=== PATIENT | male | born 1960 | race Caucasian/White ===

== ENCOUNTER 2016-04-29 22:59 | Emergency (ER) | payer SELFPAY ==
--- NOTE | 2016-05-01 00:14 | ER ---
ADMIT: 04/29/2016 RM/LOC: ER [facility] MR#: [id number] [facility] [address] [place] [id number] CHERRI ALMODOVAR [address] [place] [address] Emergency Room Report SEX: M AGE: 56 : 1960 DATE: 04/29/2016 TIME: 2259 hours. Please refer to my T-sheet for complete H and P. HISTORY OF PRESENT ILLNESS: Briefly, the patient is a 56-year-old who was actually picked up by the officers going to halfway. He had been drinking alcohol and then he complained he had chest pain after he was told some bad news about his dog that was going [place] the [place] and some other things. They brought him in for evaluation. He was cooperative, but says it was hurting. He says he is really not having too much pain now. He said he felt like his heart was racing. PHYSICAL EXAMINATION: VITAL SIGNS: Here, his blood pressure is 129/86, pulse 91, respirations 12, temp 98, saturating 96%. GENERAL: He is no acute distress. HEENT: Grossly normal. LUNGS: Clear. HEART: Regular. ABDOMEN: Soft. SKIN: No rash. EMERGENCY DEPARTMENT COURSE: EKG revealed sinus rhythm, rate 76, no changes. I assured him. He is ready for discharge. ASSESSMENT: 1. Atypical chest pain. 2. EtOH. 3. Going to halfway. PLAN: Cleared for halfway. Jeffry Abdi MD/ jacqueline JOB #: [id number] CC: Jeffry Abdi MD, Attending Physician
== END 2016-04-29 23:40 | disposition home or self-care (01) ==
LOC: ER 22:59
DX: R07.89 Other chest pain (principal); F10.20 Alcohol dependence, uncomplicated; I10 Essential (primary) hypertension; F17.210 Nicotine dependence, cigarettes, uncomplicated